=== PATIENT | male | born 1975 | race Two or more races ===

== ENCOUNTER 2020-05-21 15:43 | Emergency (ER) | payer MEDICAID ==
[~2020-05-21] VITALS: Ht 180.3 cm; Wt 87.0 kg
[2020-05-21] MEDS: HYDROCODONE/ACETAMINOPHEN 10/325MG TABLET PO ONE (18:50)
[2020-05-21] MEDS: IBUPROFEN 800MG TABLET PO NR (21:20)
[2020-05-21] MEDS: HYDROCODONE/ACETAMINOPHEN 10/325MG TABLET PO NR (21:20)
[2020-05-21] MEDS: TETANUS, DIPHTHERIA, PERTUSSIS VAC/PF 0.5ML (>7YR OLD) IM ONE (21:21)
[2020-05-21] MEDS ORDERED: IOHEXOL-300 100 ML BOTTLE ONE (22:38)
[2020-05-22 04:00] VITALS: BP 104/70
== END 2020-05-22 08:08 | disposition left against medical advice (07) ==
LOC: ER 16:21
DX: S01.01XA Laceration without foreign body of scalp, initial encounter (principal); S62.615A Displaced fracture of proximal phalanx of left ring finger, initial encounter for closed fracture; X99.8XXA Assault by other sharp object, initial encounter; S60.512A Abrasion of left hand, initial encounter; S60.511A Abrasion of right hand, initial encounter; S50.311A Abrasion of right elbow, initial encounter; S70.312A Abrasion, left thigh, initial encounter; S70.311A Abrasion, right thigh, initial encounter; M25.562 Pain in left knee; S30.0XXA Contusion of lower back and pelvis, initial encounter; S36.32XA Contusion of stomach, initial encounter; Y93.89 Activity, other specified; Y92.89 Other specified places as the place of occurrence of the external cause; Z23 Encounter for immunization
CPT/HCPCS: 12001; 70450; 71045; 71260; 73080; 73090; 73130; 73552; 73560; 74177; 90471; 90715; 93005; 99285; Q9967; Z7610